=== PATIENT | female | born 1995 | race Caucasian/White ===

== ENCOUNTER 2017-03-17 08:06 | Inpatient (IN) | payer MEDICAID ==
[~2017-03-17] VITALS: Ht 154.9 cm; Wt 84.1 kg
[~2017-03-17 08:06] MED LIST: DOCU-131 PO; IBUP-1222 PO; PREN1TAB27 PO
[2017-03-17] MEDS ORDERED: OXYTOCIN 30U/ 0.9% NaCL 500ML 500 ML IV PRN (09:13)
[2017-03-17] MEDS ORDERED: OXYTOCIN 30U/ 0.9% NaCL 500ML 500 ML IV ONE (09:13)
[2017-03-17] MEDS: LACTATED RINGERS 1,000 ML IV SCH ×2 (09:15→17:13)
[2017-03-17 09:21] VITALS: BP 106/65
[2017-03-17] MEDS ORDERED: FENTANYL PF 100 MCG/2ML IVPush PRN (09:30)
[2017-03-17] MEDS ORDERED: TERBUTALINE 1 MG/ML, 1ML IVPush PRN (09:30)
[2017-03-17] MEDS ORDERED: PLEASE ENTER HEIGHT AND WEIGHT MC SCH (09:30)
[2017-03-17] MEDS ORDERED: FENTANYL PF 100 MCG/2ML IV PRN (09:30)
[2017-03-17] MEDS ORDERED: OXYTOCIN 30U/ 0.9% NaCL 500ML 500 ML ONE (09:48)
[2017-03-17 09:59] LABS: HEMATOCRIT 44.9 % (34.6-47.8); HEMOGLOBIN 15.1 g/dL (11.7-16.4)
[2017-03-17 10:00] LABS: DIFF TOTAL CELLS COUNTED 100 CELL DIFF
[2017-03-17 10:01] LABS: VERIFY COUNTS? YES
[2017-03-17 10:02] LABS: LARGE PLATELETS 1+
[2017-03-17] MEDS ORDERED: NEWBORN KIT ONE (10:52)
[2017-03-17] MEDS ORDERED: LIDOCAINE 1%, 20ML ONE (10:52)
[2017-03-17] MEDS ORDERED: MISOPROSTOL 200 MCG TABLET ONE (10:53)
[2017-03-17] MEDS ORDERED: ACETAMINOPHEN 325 MG TABLET ONE (11:28)
[2017-03-17] MEDS ORDERED: ACETAMINOPHEN 500 MG TABLET PO ONE (11:30)
[2017-03-17] MEDS ORDERED: FENTANYL PF 100 MCG/2ML ONE ×2 (14:22→14:51)
[2017-03-17] MEDS ORDERED: FENTANYL/BUPIV./NS/PF 250 ML EPIDCONT ONE (14:51)
[2017-03-17] MEDS ORDERED: BUPIVACAINE 0.25% ONE (14:51)
[2017-03-17] MEDS ORDERED: LIDOCAINE/PF 1.5%-EPI 1:200K, 30ML ONE (14:52)
[2017-03-17] MEDS ORDERED: FENTANYL/BUPIV./NS/PF 250 ML EPIDCONT SCH (16:21)
[2017-03-17] MEDS ORDERED: LACTATED RINGERS 1,000 ML IV SCH (16:21)
[2017-03-17] MEDS ORDERED: LACTATED RINGERS 1,000 ML IVBOLUS PRN (16:30)
[2017-03-17] MEDS: OXYTOCIN 30U/ 0.9% NaCL 500ML 500 ML IV SCH (17:55)
[2017-03-17] MEDS ORDERED: CARBOPROST TROMETHAMINE 250 MCG/ML, 1ML IM PRN (18:00)
[2017-03-17] MEDS ORDERED: ONDANSETRON 2MG/ML, 2ML IV PRN (18:00)
[2017-03-17] MEDS ORDERED: METOCLOPRAMIDE 5 MG/ML, 2ML IV PRN (18:00)
[2017-03-17] MEDS ORDERED: ACETAMINOPHEN 325 MG TABLET PO PRN (18:00)
[2017-03-17] MEDS ORDERED: METHYLERGONOVINE 0.2 MG/ML IM PRN (18:00)
[2017-03-17] MEDS ORDERED: GLYCERIN ADULT SUPP PR PRN (18:00)
[2017-03-17] MEDS ORDERED: MISOPROSTOL 200 MCG TABLET PR PRN (18:00)
[2017-03-17] MEDS ORDERED: OXYcodone/APAP 5/325MG TABLET PO PRN (18:00)
[2017-03-17] MEDS ORDERED: BISACODYL 10 MG SUPP PR PRN (18:00)
[2017-03-17 19:30] VITALS: BP 108/72
[2017-03-17] MEDS: DOCUSATE 100 MG CAPSULE PO PRN (19:46)
[2017-03-17] MEDS: IBUPROFEN 800 MG TABLET PO PRN (19:46)
[2017-03-17 23:45] VITALS: BP 101/64
[2017-03-18 02:34] LABS: HEMATOCRIT 37.4 % (34.6-47.8); HEMOGLOBIN 12.5 g/dL (11.7-16.4); WHITE BLOOD COUNT 11.9 x10^3/uL (3.4-10)
[2017-03-18] MEDS: OXYTOCIN 30U/ 0.9% NaCL 500ML 500 ML IV SCH ×2 (03:55→13:55)
[2017-03-18] MEDS: IBUPROFEN 800 MG TABLET PO PRN ×2 (04:30→16:31)
[2017-03-18 04:31] VITALS: BP 106/68
[2017-03-18 08:40] VITALS: BP 100/68
[2017-03-18] MEDS ORDERED: PRENATAL VIT/IRON/FA 1 EACH TABLET PO SCH (09:00)
[2017-03-18] MEDS: DOCUSATE 100 MG CAPSULE PO PRN (09:14)
[2017-03-18] MEDS: OXYcodone/APAP 5/325MG TABLET PO PRN ×2 (10:52→16:32)
[2017-03-18 12:10] VITALS: BP 105/70
[2017-03-18] MEDS ORDERED: OXYC-302 PO (14:35)
[2017-03-18] MEDS ORDERED: IBUP-1223 PO (14:35)
== END 2017-03-18 17:04 | disposition home or self-care (01) | DRG 775 ==
LOC: LDIP 08:24 → 2NW 19:10
PROVIDERS: ADMIT Student in an Organized Health Care Education/Training Program; ATTEND Student in an Organized Health Care Education/Training Program
PROC: 10E0XZZ Delivery of Products of Conception, External Approach (ICD-10-PCS; principal; 2017-03-18)
PROC: 10907ZC Drainage of Amniotic Fluid, Therapeutic from Products of Conception, Via Natural or Artificial Opening (ICD-10-PCS; 2017-03-18)
PROC: 0HQ9XZZ Repair Perineum Skin, External Approach (ICD-10-PCS; 2017-03-18)
PROC: 3E0R3BZ Introduction of Anesthetic Agent into Spinal Canal, Percutaneous Approach (ICD-10-PCS; 2017-03-18)
PROC: 00HU33Z Insertion of Infusion Device into Spinal Canal, Percutaneous Approach (ICD-10-PCS; 2017-03-18)
DX: O70.0 First degree perineal laceration during delivery (principal); Z37.0 Single live birth; Z3A.39 39 weeks gestation of pregnancy
CPT/HCPCS: 36415; 85025; 86850; 86900; J3010; J3490; J2590; J7120